=== PATIENT | male | born 1985 | race Caucasian/White ===

== ENCOUNTER 2019-04-02 18:40 | Emergency (ER) | payer OTHER ==
[2019-04-02] MEDS ORDERED: Azithromycin 250 MG Tab ONE (19:30)
[2019-04-02] MEDS: Ondansetron 4 MG/2 ML SDV IVPUSH ONE (20:18)
[2019-04-02] MEDS: Ondansetron 4 MG/2 ML SDV ONE (20:19)
--- NOTE | 2019-04-03 01:11 | ER ---
REASON FOR EMERGENCY ROOM VISIT: Sore throat and fever. HISTORY: This 33-year-old man was ice fishing today and began to experience some fever, chills, and increasing sore throat. He did have some myalgias as well. Yesterday, he had noticed that he had a "frog in my throat" and started to cough mildly productively throughout the day yesterday. He came to the emergency room to be seen and evaluated. He had not had any nausea or vomiting, although he started to feel somewhat nauseated after he arrived in the emergency department. PAST MEDICAL HISTORY: Significant for Crohn disease. MEDICATIONS: Remicade (see EMR). ALLERGIES: POSSIBLY TO AMOXICILLIN. REVIEW OF SYSTEMS: Pertinent positives and negatives as listed in the HPI. PHYSICAL EXAMINATION: GENERAL: He is a pleasant man who appears somewhat flushed. VITAL SIGNS: His temperature is 38.2 degrees, heart rate 102, blood pressure 132/81, respiratory rate is 18, O2 sats 100% on room air. HEENT: No conjunctivitis is noted. Oropharynx and soft palate are erythematous and somewhat edematous. There may be some mild tonsillar exudates present as well. NECK: Supple with no actual adenopathy on either side. CHEST: Clear to auscultation with good air exchange and no wheezes, rhonchi, or rales. CARDIAC: Regular rate without murmur. SKIN: No rashes. LABORATORY DATA: We went ahead and got both his nasopharyngeal swab for influenza A and B as well as strep screen was indeed positive. IMPRESSION: Streptococcal pharyngitis. PLAN: In light of his amoxicillin allergy, even though it maybe questionable, I went ahead and gave him a Z-Braydon to take as directed. If he is still having any symptoms by early next week, he should return for another recheck. If any questions or concerns arise, he should likewise give us a call or return. He understands and agrees with this plan. All questions were answered. TAYLOR /[id number]
== END 2019-04-02 20:44 | disposition home or self-care (01) ==
LOC: LB.ED 18:40
DX: J02.0 Streptococcal pharyngitis (principal)
CPT/HCPCS: 87430; 87804; 87804-59; 96374; 99283-25; A9270-GY; J2405